=== PATIENT | male | born 1980 | race Caucasian/White ===

== ENCOUNTER 2018-01-19 19:28 | Emergency (ER) | payer BC ==
--- NOTE | 2018-01-19 20:12 | ER Document Report ---
HPI - HPI Pain Level: 4 Notes: Patient is a 37-year-old male with no significant past medical history who presents to the ED with a red painful area to the right medial lower leg that he noticed this morning. Patient states that it is draining on occasion, but has not swollen up on him. Patient states that there is pain to touch. He has no history of MRSA. Denies any drug allergies. Patient does admit to smoking but denies IV drug use. Patient states that he is ambulatory without any difficulties. He is eating and drinking without difficulties. He is urinating normally and having normal bowel movements. Denies any previous history of DVTs. Denies any headache, fever, neck pain, URI, sore throat, chest pain, palpitations, syncope, cough, shortness of breath, wheeze, dyspnea, abdominal pain, nausea/vomiting/diarrhea, urinary retention, dysuria, hematuria, loss of control of bowel or bladder, numbness/tingling, saddle anesthesia, muscle paralysis/weakness, or rash. - ROS Systems Reviewed and Negative: Yes All other systems reviewed and negative Past Medical History - Social History Smoking Status: Current Every Day Smoker Family History: Reviewed & Not Pertinent Vertical Provider Document - CONSTITUTIONAL Agree With Documented VS: Yes Notes: PHYSICAL EXAMINATION: GENERAL: Well-appearing, well-nourished and in no acute distress. LUNGS: Breath sounds clear to auscultation bilaterally and equal. No wheezes rales or rhonchi. HEART: Regular rate and rhythm without murmurs, rubs, gallops. Musculoskeletal: Rt leg: FROM to passive/active. Strength 5+/5. N/V intact distal. Ainval neg b/l. Extremities: No cyanosis, clubbing, or edema b/l. Peripheral pulses 2+. Capillary refill less than 3 seconds. NEUROLOGICAL: Normal speech, normal gait. Normal sensory, motor exams PSYCH: Normal mood, normal affect. SKIN: Rt medial lower prox leg: + cellulitis with central scab. Cellulitis extends approx 3cm w/o streaks or abscess requiring I&D. The scabbed area does have scant discharge w/o deep induration or fluid pocket. I was able to obtain a minimal amount for wound culture with expressing what fluid is there. - INFECTION CONTROL TRAVEL OUTSIDE OF THE [place] IN LAST 30 DAYS: No Course - Re-evaluation Re-evalutation: 01/19/18 20:10 Patient is an afebrile, well-hydrated, 37-year-old male who presents to the ED with cellulitis to his right medial leg, wound culture obtained. Vitals are acceptable. PE is otherwise unremarkable for any neurovascular compromise, obvious tendon/ligament rupture, obvious fracture/dislocation, septic joint, DVT. No labs or imaging warranted at this time based on H&P aside from the wound culture. I will be placing him on Keflex and Bactrim to take as directed. Conservative measures otherwise for symptoms. Wound dressing was placed. Recheck with your PCM in 2-3 days. Return to the ED with any worsening /concerning symptoms otherwise as reviewed discharge. Patient is in agreement. - Vital Signs Vital signs: Temp Pulse Resp BP Pulse Ox 99.1 F 104 H 20 150/94 H 96 01/19/18 19:43 01/19/18 19:43 01/19/18 19:43 01/19/18 19:43 01/19/18 19:43 Discharge - Discharge Clinical Impression: Cellulitis of right lower extremity Condition: Stable Disposition: HOME, SELF-CARE Instructions: Trimethoprim-Sulfa ([facility]), Cephalexin ([facility]), Cellulitis ([facility]) Additional Instructions: Keep the skin clean Wash with soap and water Tylenol/ibuprofen if needed Triple antibiotic ointment daily Take medication as directed Monitor for any worsening symptoms Recheck with your PCM in 2-3 days Return to the ED with any worsening symptoms and/or development of fever, headache, chest pain, palpitations, syncope, shortness of breath, trouble breathing, abdominal pain, n/v/d, abscess, purulent discharge, red streaks, worsening swelling, or other worsening symptoms that are concerning to you. Prescriptions: Cephalexin Monohydrate [Keflex 500 mg Capsule] 500 mg PO BID #20 capsule Sulfamethoxazole/Trimethoprim [Bactrim Ds Tablet] 1 each PO BID #20 tablet Forms: Elevated Blood Pressure, Smoking Cessation Education Referrals: [facility] [Provider Group] - Follow up as needed [facility] [Provider Group] - Follow up as needed
[2018-01-19 20:22] VITALS: BP 121/76
== END 2018-01-19 20:23 | disposition home or self-care (01) ==
LOC: ER 19:28
DX: L03.115 Cellulitis of right lower limb (principal); F17.200 Nicotine dependence, unspecified, uncomplicated
CPT/HCPCS: 87070; 87077; 87186; 87205; 99283